=== PATIENT | female | born 1985 | race Caucasian/White ===

== ENCOUNTER 2019-02-05 20:08 | Inpatient (IN) | payer BC ==
[2019-02-05] MEDS ORDERED: Lactated Ringers 1,000 ML IV ONE (20:29)
[2019-02-05] MEDS ORDERED: fentaNYL 100 MCG/2 ML SDV IVPUSH PRN (20:29)
[2019-02-05] MEDS ORDERED: Oxytocin 10 Units/1 ML SDV ONE (21:11)
[2019-02-05] MEDS ORDERED: Oxytocin 10 Units/1 ML SDV IM ONE (21:11)
[2019-02-05] MEDS ORDERED: Sodium Chloride 0.9% 10 ML Syringe FLUSH PRN (21:46)
[2019-02-05] MEDS ORDERED: Lanolin 100% Cream 40 GM Tube TOP PRN (21:50)
[2019-02-05] MEDS ORDERED: Hydrocortisone 2.5% Crm 30 GM Tube TOP ONE (21:50)
[2019-02-05] MEDS ORDERED: Lanolin 100% Cream 40 GM Tube TOP ONE (21:50)
[2019-02-05] MEDS ORDERED: Witch Hazel Medicated Pads 100/Jar TOP ONE (21:50)
[2019-02-05] MEDS ORDERED: Benzocaine 20% Top Spray 56 GM Bottle TOP ONE (21:50)
[2019-02-05] MEDS ORDERED: Witch Hazel Medicated Pads 100/Jar TOP PRN (21:50)
[2019-02-05] MEDS ORDERED: Acetaminophen 325 MG Tab, 50 Tab Bulk Bottle PO PRN (21:57)
[2019-02-05] MEDS ORDERED: Ibuprofen 200 MG Tab, 24 Tab Bulk Bottle PO PRN (21:57)
--- NOTE | 2019-02-05 22:06 | PCM.LDHP ---
L&D History of Present Illness - General Date of Service: 02/05/19 (active labor) Admit Problem/Dx: Patient Status Order with Admit Dx/Problem 02/05/19 21:46 Patient Status [ADT] Routine 02/05/19 21:50 Patient Status [ADT] Routine Admission Diagnosis/Problem Admission Diagnosis/Problem Source of Information: Patient History Limitations: Reports: No Limitations - History of Present Illness Introduction:: This 33 year old presented in active labor at 2014. She is 40 5/7 weeks and has joyce adequate care. Contractions started at 0230 and were on and off most of the day. This evening the contractions became stronger and felt the need to come in. On arrival CE was 3-4/80/-1 per the RN. No leaking of fluid , requesting something for pain. Lab GBS neg HIV neg Rubella Immune ABO A pos Timing/Duration: Reports: minutes: (1-2) Location, : Reports: Abdomen, Lower back, Other (hips) Quality: Reports: Ache, Pressure Severity: Severe Pain Score: 5 Improves with: Reports: Movement Worsens with: Reports: None - Related Data Allergies/Adverse Reactions: Allergies Allergy/AdvReac Type Severity Reaction Status Date / Time amoxicillin [Amoxicillin] Allergy Hives Verified 01/09/15 09:24 erythromycin base AdvReac Nausea and Verified 01/09/15 09:24 [Erythromycin Base] Vomiting Home Medications: Home Meds Levothyroxine Sodium [Synthroid] 75 mcg PO DAILY 01/21/13 [History] Omeprazole 40 mg PO DAILY 10/03/14 [History] Vit 90/Iron Fum/Folic [ Formula] 1 tab PO DAILY 10/03/14 [ History] Albuterol Sulfate [Albuterol Sulfate HFA] 2 puff IH Q4H PRN 01/07/15 [History] Past Medical History Other HEENT History: glasses Other Cardiovascular History: heart murmur as child Other Gastrointestinal History: dilated common bile duct takes omeprazole : 7 Para: 4 LMP (Approximate): (PATTI 02/02/19) Other Musculoskeletal History: sciatica pain with pregnancies Other Endocrine/Metabolic History: hypothyroidism H&P Review of Systems - Review of Systems: Review Of Systems: See Below General: Reports: No Symptoms HEENT: Reports: No Symptoms Pulmonary: Reports: No Symptoms Cardiovascular: Reports: No Symptoms Gastrointestinal: Reports: No Symptoms Genitourinary: Reports: No Symptoms Musculoskeletal: Reports: No Symptoms Skin: Reports: No Symptoms Psychiatric: Reports: No Symptoms Neurological: Reports: No Symptoms Hematologic/Lymphatic: Reports: No Symptoms Immunologic: Reports: No Symptoms L&D Exam - Exam Exam: See Below - OB Specific Contraction Intensity: Strong Movement: Active Heart Tones: Present Heart Tones per Min: 140 Heart Rate (FHR) Variability: Moderate (6-25 bmp) Presentation: Vertex Estimated Weight: 7-8 pounds - John Score John Score Cervix Position: Anterior John Score Consistency: Soft John Score Effacement: >80% John Score Dilation: 3-4 cm John Score Infant's Station: -1 ,0 John Score Total: 11 - Exam General: Alert, Oriented HEENT: PERRLA, Conjunctiva Clear, Mucosa Moist & [place], Pupils Equal, Pupils Reactive Neck: Supple Lungs: Clear to Auscultation, Normal Respiratory Effort Cardiovascular: Regular Rate, Regular Rhythm GI/Abdominal Exam: Normal Bowel Sounds, Soft, Non-Tender, Pelvis Stable Rectal Exam: Normal Exam, Hemorrhoids Genitourinary: Cervical dilitation, Enlarged uterus Back Exam: Normal Inspection, Full Range of Motion Extremities: Normal Inspection, Normal Range of Motion, No Pedal Edema, Normal Capillary Refill Skin: Warm, Dry, Intact Neurological: Cranial Nerves Intact, Reflexes Equal Bilateral Psychiatric: Alert, Normal Affect, Normal Mood - Patient Data Lab Results Last 24 hrs: Laboratory Results - last 24 hr 02/05/19 Range/Units 20:14 Urine Color Yellow (YELLOW) Urine Appearance Clear (CLEAR) Urine pH 7.0 (5.0-8.0) Ur Specific [place] 1.015 (1.008-1.030) Urine Protein Negative (NEGATIVE) mg/dL Urine Glucose (UA) Negative (NEGATIVE) mg/dL Urine Ketones Negative (NEGATIVE) mg/dL Urine Occult Blood Negative (NEGATIVE) Urine Nitrite Negative (NEGATIVE) Urine Bilirubin Negative (NEGATIVE) Urine Urobilinogen 0.2 (0.2-1.0) EU/dL Ur Leukocyte Esterase Negative (NEGATIVE) Urine RBC 0-5 (0-5) Urine WBC 0-5 (0-5) Ur Epithelial Cells Moderate Amorphous Sediment Few Urine Bacteria Few Urine Mucus Few - Problem List (1) Active labor at term SNOMED Code(s): 79735860 ICD Code: [id number] - Status: Acute Current Visit: Yes (2) Intrauterine SNOMED Code(s): 81342826 ICD Code: Z33.1 - STATE, INCIDENTAL Status: Acute Current Visit : No (3) Post-dates SNOMED Code(s): 51812448 ICD Code: O48.0 - POST-TERM Status: Acute Current Visit: No Problem List Initiated/Reviewed/Updated: Yes Orders Last 24hrs: Active Orders 24 hr Category Date Time Status Patient Status [ADT] Routine ADT 02/05/19 21:50 Active Antiembolic Devices [RC] .Routine Care 02/05/19 21:49 Active Communication Order [RC] ASDIRECTED Care 02/05/19 21:46 Active Heart Tones [RC] PER UNIT ROUTINE Care 02/05/19 21:46 Active Notify Provider Vital Signs [RC] PRN Care 02/05/19 20:15 Active Notify Provider [RC] PRN Care 02/05/19 21:46 Active OB Check [OM.PC] Click to Edit Care 02/05/19 20:14 Ordered VTE/DVT Education [RC] Click to Edit Care 02/05/19 21:49 Active Vital Signs [RC] PER UNIT ROUTINE Care 02/05/19 21:46 Active Vital Signs [RC] PFP Care 02/05/19 21:50 Active Regular Diet [DIET] Diet 02/06/19 Breakfast Active CBC WITH AUTO DIFF [HEME] AM Lab 02/06/19 05:11 Ordered Acetaminophen [Tylenol Bulk Bottle] Med 02/05/19 21:57 Ordered See Dose Instructions PO Q4H PRN Benzocaine [Kazd-N-Rpaikkh 20% [place]] Med 02/05/19 21:50 Once See Dose Instructions TOP ONETIME ONE Hydrocortisone [Proctozone-HC 2.5% Crm] Med 02/05/19 21:50 Once 1 gm TOP ONETIME ONE Ibuprofen [Motrin Bulk Bottle] Med 02/05/19 21:57 Ordered 600 mg PO Q6H PRN Lanolin [Lansinoh HPA] Med 02/05/19 21:50 Once 1 gm TOP ONETIME ONE Lanolin [Lansinoh HPA] Med 02/05/19 21:50 Ordered 40 gm TOP ASDIRECTED PRN Sodium Chloride 0.9% [Saline Flush] Med 02/05/19 21:46 Active 10 ml FLUSH ASDIRECTED PRN Witch Sally [Tucks] Med 02/05/19 21:50 Ordered 1 pad TOP ASDIRECTED PRN Witch Sally [Tucks] Med 02/05/19 21:50 Once 1 pad TOP ONETIME ONE fentaNYL [Sublimaze] Med 02/05/19 20:29 Active 100 mcg IVPUSH Q1H PRN Assess Lochia [WOMSER] Per Unit Routine Oth 02/05/19 21:50 Ordered Assess Uterine Involution [WOMSER] Per Unit Routine Oth 02/05/19 21:50 Ordered DVT/VTE Prophylaxis Reflex [OM.PC] Routine Oth 02/05/19 21:46 Ordered Ice Therapy [OM.PC] Per Unit Routine Oth 02/05/19 21:51 Ordered Perineal Care [OM.PC] Per Unit Routine Oth 02/05/19 21:51 Ordered Peripheral IV Discontinue [OM.PC] Routine Oth 02/05/19 21:51 Ordered Saline Lock Insert [OM.PC] Routine Oth 02/05/19 21:46 Ordered Resuscitation Status Routine Resus Stat 02/05/19 21:46 Ordered Medication Orders Acetaminophen (Tylenol Bulk Bottle) 0 mg PO Q4H PRN PRN Reason: Pain Benzocaine (Wpdt-F-Qkstmyn 20% [place]) 0 gm TOP ONETIME ONE Stop: 02/05/19 21:51 Emollient Ointment (Lansinoh Hpa) 1 gm TOP ONETIME ONE Stop: 02/05/19 21:51 Emollient Ointment (Lansinoh Hpa) 40 gm TOP ASDIRECTED PRN PRN Reason: Other Fentanyl (Sublimaze) 100 mcg IVPUSH Q1H PRN PRN Reason: Pain Last Admin: 02/05/19 21:18 Dose: 100 mcg Hydrocortisone (Proctozone-Hc 2.5% Crm) 1 gm TOP ONETIME ONE Stop: 02/05/19 21:51 Ibuprofen (Motrin Bulk Bottle) 600 mg PO Q6H PRN PRN Reason: Pain Sodium Chloride (Saline Flush) 10 ml FLUSH ASDIRECTED PRN PRN Reason: Keep Vein Open Witch Sally (Tucks) 1 pad TOP ONETIME ONE Stop: 02/05/19 21:51 Sintia Zavala (Kai) 1 pad TOP ASDIRECTED PRN PRN Reason: Other Assessment/Plan Comment:: active labor 33 yr old 40 5 Admit for labor and delivery Pain medication per patient request Anticipate a vaginal delivery this evening
--- NOTE | 2019-02-05 22:21 | PCM.DEL ---
L & D Note - General Info Date of Service: 02/05/19 (Childbirth) Mother's Due Date: 02/02/19 - Delivery Note Labor: Spontaneous Delivery Outcome: Livebirth Infant Delivery Method: Spontaneous Vaginal Delivery-Single Delivery Mode: Spontaneous Presentation: Right Occiput Anterior ([place]) Nuchal Cord: None Anesthesia Type: None Amniotic Fluid Description: Clear Episiotomy Type: None Laceration: None Placenta: Intact, Spontaneous, Expressed Cord: 3 Vessels Estimated Blood Loss: 300 Resuscitation Needed: No [place]: Stimulated, Warmed, [place] Used Provider: Maki Mcdonald Score 1 min: 8 Score 5 min: 9 Second Stage Interventions: Reports: Second Nurse Reviewed Heart Tones, Pushing Effectively, Pushing, McRobert's Position Delivery Comments (Free Text/Narrative):: This 33 year old G7 now P5 who is 40 5/7 weeks gestation delivered at 2104 in [place] a viable female over an intact perineum. Mother progressed quickly from 3 cm to complete. SROM at 2047 and complete at 2099. Clear fluid no nuchal cord, three vessel cord. The was placed on her mother's chest where she was dried and stimulated. She cried spontaneously. Delayed cord clamping and pitocin after the delivery for management of the third stage. Baby was to breast within 15 minutes of delivery. The placenta was expressed spontaneously intact. No lacerations of the cervix, vagina, rectum or perineum were found. EBL 300 cc Mother and baby to post in stable condition weight 7-14 first stage second stage third stage - General Info Date of Service: 02/05/19 Admission Dx/Problem (Free Text): Patient Status Order with Admit Dx/Problem 02/05/19 21:46 Patient Status [ADT] Routine 02/05/19 21:50 Patient Status [ADT] Routine Admission Diagnosis/Problem Admission Diagnosis/Problem Functional Status: Reports: Pain Controlled - Review of Systems General: Reports: No Symptoms HEENT: Reports: No Symptoms Pulmonary: Reports: No Symptoms Cardiovascular: Reports: No Symptoms Gastrointestinal: Reports: No Symptoms Genitourinary: Reports: No Symptoms Musculoskeletal: Reports: No Symptoms Skin: Reports: No Symptoms Neurological: Reports: No Symptoms Psychiatric: Reports: No Symptoms - Patient Data Lab Results Last 24 Hours: Laboratory Results - last 24 hr 02/05/19 Range/Units 20:14 Urine Color Yellow (YELLOW) Urine Appearance Clear (CLEAR) Urine pH 7.0 (5.0-8.0) Ur Specific [place] 1.015 (1.008-1.030) Urine Protein Negative (NEGATIVE) mg/dL Urine Glucose (UA) Negative (NEGATIVE) mg/dL Urine Ketones Negative (NEGATIVE) mg/dL Urine Occult Blood Negative (NEGATIVE) Urine Nitrite Negative (NEGATIVE) Urine Bilirubin Negative (NEGATIVE) Urine Urobilinogen 0.2 (0.2-1.0) EU/dL Ur Leukocyte Esterase Negative (NEGATIVE) Urine RBC 0-5 (0-5) Urine WBC 0-5 (0-5) Ur Epithelial Cells Moderate Amorphous Sediment Few Urine Bacteria Few Urine Mucus Few Med Orders - Current: Current Medications Acetaminophen (Tylenol Bulk Bottle) 0 mg PO Q4H PRN PRN Reason: Pain Emollient Ointment (Lansinoh Hpa) 0 gm TOP ASDIRECTED PRN PRN Reason: Other Fentanyl (Sublimaze) 100 mcg IVPUSH Q1H PRN PRN Reason: Pain Last Admin: 02/05/19 21:18 Dose: 100 mcg Ibuprofen (Motrin Bulk Bottle) 600 mg PO Q6H PRN PRN Reason: Pain Sodium Chloride (Saline Flush) 10 ml FLUSH ASDIRECTED PRN PRN Reason: Keep Vein Open Sintia Zavala (Kai) 1 pad TOP ASDIRECTED PRN PRN Reason: Other Discontinued Medications Benzocaine (Isyl-S-Lspmsla 20% [place]) 0 gm TOP ONETIME ONE Stop: 02/05/19 21:51 Emollient Ointment (Lansinoh Hpa) 1 gm TOP ONETIME ONE Stop: 02/05/19 21:51 Hydrocortisone (Proctozone-Hc 2.5% Crm) 0 gm TOP ONETIME ONE Stop: 02/05/19 21:51 Lactated Ringer's (Ringers, Lactated) 1,000 mls @ 999 mls/hr IV BOLUS ONE Stop: 02/05/19 21:29 Oxytocin (Pitocin) Confirm Administered Dose 10 unit .ROUTE .STK-MED ONE Stop: 02/05/19 21:12 Witch Sally ([place]) 1 pad TOP ONETIME ONE Stop: 02/05/19 21:51 - Exam General: Alert, Oriented HEENT: Pupils Equal Neck: Supple Lungs: Clear to Auscultation, Normal Respiratory Effort Cardiovascular: Regular Rate, Regular Rhythm GI/Abdominal Exam: Soft, Non-Tender (Female) Exam: Cervical Dilatation, Enlarged Uterus, Vaginal Bleeding Back Exam: Normal Inspection Extremities: Normal Range of Motion, No Pedal Edema, Normal Capillary Refill Skin: Warm, Dry, Intact Neurological: No New Focal Deficit Psy/Mental Status: Alert, Normal Affect, Normal Mood - Problem List & Annotations (1) Active labor at term SNOMED Code(s): 73708469 Code(s): LYA8341 - Status: Acute Current Visit: Yes (2) Intrauterine SNOMED Code(s): 20939925 Code(s): Z33.1 - STATE, INCIDENTAL Status: Acute Current Visit: No (3) Post-dates SNOMED Code(s): 83756917 Code(s): O48.0 - POST-TERM Status: Acute Current Visit: No (4) () SNOMED Code(s): 554809736 Code(s): Z78.9 - OTHER SPECIFIED HEALTH STATUS Status: Acute Current Visit: Yes (5) Delivery normal SNOMED Code(s): 214344689 Code(s): O80 - ENCOUNTER FOR FULL-TERM UNCOMPLICATED DELIVERY; Z37.0 - SINGLE LIVE Status: Acute Current Visit: Yes - Problem List Review Problem List Initiated/Reviewed/Updated: Yes - My Orders Last 24 Hours: My Active Orders 02/05/19 20:14 OB Check [OM.PC] Click to Edit 02/05/19 20:15 Notify Provider Vital Signs [RC] PRN 02/05/19 20:29 fentaNYL [Sublimaze] 100 mcg IVPUSH Q1H PRN 02/05/19 21:46 Communication Order [RC] ASDIRECTED Heart Tones [RC] PER UNIT ROUTINE Notify Provider [RC] PRN Vital Signs [RC] PER UNIT ROUTINE Sodium Chloride 0.9% [Saline Flush] 10 ml FLUSH ASDIRECTED PRN DVT/VTE Prophylaxis Reflex [OM.PC] Routine Saline Lock Insert [OM.PC] Routine Resuscitation Status Routine 02/05/19 21:49 Antiembolic Devices [RC] .Routine VTE/DVT Education [RC] Click to Edit 02/05/19 21:50 Patient Status [ADT] Routine Vital Signs [RC] PFP Lanolin [Lansinoh HPA] 40 gm TOP ASDIRECTED PRN Sintia Zavala [Tucks] 1 pad TOP ASDIRECTED PRN Assess Lochia [WOMSER] Per Unit Routine Assess Uterine Involution [WOMSER] Per Unit Routine 02/05/19 21:51 Ice Therapy [OM.PC] Per Unit Routine Perineal Care [OM.PC] Per Unit Routine Peripheral IV Discontinue [OM.PC] Routine 02/05/19 21:57 Acetaminophen [Tylenol Bulk Bottle] See Dose Instructions PO Q4H PRN Ibuprofen [Motrin Bulk Bottle] 600 mg PO Q6H PRN 02/06/19 05:11 CBC WITH AUTO DIFF [HEME] AM 02/06/19 Breakfast Regular Diet [DIET] - Assessment Assessment:: 33 year old G7 now P5 without complications infant - Plan Plan:: active labor 33 yr old 40 5/7 Admit for labor and delivery Pain medication per patient request Anticipate a vaginal delivery this evening 02/05/19 routine cares CBC in am support 24-48 hour stay
[2019-02-05] MEDS ORDERED: traMADol 50 MG Tab PO ONE (22:33)
--- NOTE | 2019-02-06 08:10 | PCM.PNPP ---
- General Info Date of Service: 02/06/19 Admission Dx/Problem (Free Text): Patient Status Order with Admit Dx/Problem 02/05/19 21:46 Patient Status [ADT] Routine 02/05/19 21:50 Patient Status [ADT] Routine Admission Diagnosis/Problem Admission Diagnosis/Problem Functional Status: Reports: Pain Controlled - Review of Systems General: Reports: No Symptoms HEENT: Reports: No Symptoms Pulmonary: Reports: No Symptoms Cardiovascular: Reports: No Symptoms Gastrointestinal: Reports: No Symptoms Genitourinary: Reports: No Symptoms Musculoskeletal: Reports: No Symptoms Skin: Reports: No Symptoms Neurological: Reports: No Symptoms Psychiatric: Reports: No Symptoms - General Info Date of Service: 02/06/19 - Patient Data Vital Signs - Most Recent: Last Vital Signs Temp 97.3 F 02/06/19 07:17 Pulse 81 02/06/19 07:17 Resp 18 02/06/19 07:17 BP 117/87 02/06/19 07:17 Pulse Ox 98 02/06/19 07:17 Weight - Most Recent: 163 lb I&O - Last 24 Hours: Intake & Output 02/05/19 02/06/19 02/06/19 22:59 06:59 14:59 Intake Total 850 Balance 850 Lab Results - Last 24 Hours: Laboratory Results - last 24 hr 02/05/19 02/06/19 Range/Units 20:14 05:00 WBC 13.5 H (4.5-11.0) K/uL RBC 3.42 (3.30-5.50) M/uL Hgb 10.6 L (12.0-15.0) g/dL Hct 31.3 L (36.0-48.0) % MCV 92 (80-98) fL MCH 31 (27-31) pg MCHC 34 (32-36) % Plt Count 278 (150-400) K/uL Neut % (Auto) 81 H (36-66) % Lymph % (Auto) 12 L (24-44) % [place] % (Auto) 7 H (2-6) % Eos % (Auto) 0 L (2-4) % Baso % (Auto) 0 (0-1) % Urine Color Yellow (YELLOW) Urine Appearance Clear (CLEAR) Urine pH 7.0 (5.0-8.0) Ur Specific [place] 1.015 (1.008-1.030) Urine Protein Negative (NEGATIVE) mg/dL Urine Glucose (UA) Negative (NEGATIVE) mg/dL Urine Ketones Negative (NEGATIVE) mg/dL Urine Occult Blood Negative (NEGATIVE) Urine Nitrite Negative (NEGATIVE) Urine Bilirubin Negative (NEGATIVE) Urine Urobilinogen 0.2 (0.2-1.0) EU/dL Ur Leukocyte Esterase Negative (NEGATIVE) Urine RBC 0-5 (0-5) Urine WBC 0-5 (0-5) Ur Epithelial Cells Moderate Amorphous Sediment Few Urine Bacteria Few Urine Mucus Few Med Orders - Current: Current Medications Acetaminophen (Tylenol Bulk Bottle) 0 mg PO Q4H PRN PRN Reason: Pain Emollient Ointment (Lansinoh Hpa) 0 gm TOP ASDIRECTED PRN PRN Reason: Other Ibuprofen (Motrin Bulk Bottle) 600 mg PO Q6H PRN PRN Reason: Pain Last Admin: 02/05/19 22:16 Dose: 600 mg Sodium Chloride (Saline Flush) 10 ml FLUSH ASDIRECTED PRN PRN Reason: Keep Vein Open Sintia Zavala (Kai) 1 pad TOP ASDIRECTED PRN PRN Reason: Other Discontinued Medications Benzocaine (Lqri-X-Zsdethr 20% [place]) 0 gm TOP ONETIME ONE Stop: 02/05/19 21:51 Last Admin: 02/05/19 23:43 Dose: Not Given Emollient Ointment (Lansinoh Hpa) 1 gm TOP ONETIME ONE Stop: 02/05/19 21:51 Last Admin: 02/05/19 23:42 Dose: 1 applic Fentanyl (Sublimaze) 100 mcg IVPUSH Q1H PRN PRN Reason: Pain Last Admin: 02/05/19 21:18 Dose: 100 mcg Hydrocortisone (Proctozone-Hc 2.5% Crm) 0 gm TOP ONETIME ONE Stop: 02/05/19 21:51 Last Admin: 02/06/19 02:31 Dose: Not Given Lactated Ringer's (Ringers, Lactated) 1,000 mls @ 999 mls/hr IV BOLUS ONE Stop: 02/05/19 21:29 Last Admin: 02/05/19 20:40 Dose: 999 mls/hr Oxytocin (Pitocin) Confirm Administered Dose 10 unit .ROUTE .STK-MED ONE Stop: 02/05/19 21:12 Last Admin: 02/05/19 21:12 Dose: 10 unit Tramadol HCl (Ultram) 50 mg PO ONETIME ONE Stop: 02/05/19 22:34 Last Admin: 02/05/19 22:58 Dose: 50 mg Witch Sally (Tucks) 1 pad TOP ONETIME ONE Stop: 02/05/19 21:51 Last Admin: 02/05/19 23:43 Dose: 1 pad - Interaction Disposition, : [place] in Room with Family Infant Interaction: Holding Infant Feeding: Breastfed Infant; Nursed Well Support Person: , Mother - Recovery Exam Fundal Tone: Firm Fundal Level: At Umbilicus Fundal Placement: Midline Lochia Amount: Moderate Lochia Color: [place]/Red Perineum Description: Intact, Minimal Bruising/Swelling Episiotomy/Laceration: None Urinary Elimination: Voided - Exam General: Alert, Oriented HEENT: Pupils Equal, Pupils Reactive Neck: Supple Lungs: Clear to Auscultation, Normal Respiratory Effort Cardiovascular: Regular Rate, Regular Rhythm GI/Abdominal Exam: Normal Bowel Sounds Extremities: Normal Inspection, Normal Range of Motion, No Pedal Edema Skin: Warm, Dry, Intact Wound/Incisions: Healing Well Neurological: No New Focal Deficit Psy/Mental Status: Alert, Normal Affect, Normal Mood - Problem List & Annotations (1) Active labor at term SNOMED Code(s): 78161264 Code(s): TTF0967 - Status: Acute Current Visit: Yes (2) Intrauterine SNOMED Code(s): 60080390 Code(s): Z33.1 - STATE, INCIDENTAL Status: Acute Current Visit: No (3) Post-dates SNOMED Code(s): 76831231 Code(s): O48.0 - POST-TERM Status: Acute Current Visit: No (4) () SNOMED Code(s): 188446631 Code(s): Z78.9 - OTHER SPECIFIED HEALTH STATUS Status: Acute Current Visit: Yes (5) Delivery normal SNOMED Code(s): 307225870 Code(s): O80 - ENCOUNTER FOR FULL-TERM UNCOMPLICATED DELIVERY; Z37.0 - SINGLE LIVE Status: Acute Current Visit: Yes - Problem List Review Problem List Initiated/Reviewed/Updated: Yes - My Orders Last 24 Hours: My Active Orders 02/05/19 20:14 OB Check [OM.PC] Click to Edit 02/05/19 20:15 Notify Provider Vital Signs [RC] PRN 02/05/19 21:46 Vital Signs [RC] PER UNIT ROUTINE Sodium Chloride 0.9% [Saline Flush] 10 ml FLUSH ASDIRECTED PRN DVT/VTE Prophylaxis Reflex [OM.PC] Routine Saline Lock Insert [OM.PC] Routine Resuscitation Status Routine 02/05/19 21:49 Antiembolic Devices [RC] .Routine VTE/DVT Education [RC] Click to Edit 02/05/19 21:50 Patient Status [ADT] Routine Vital Signs [RC] PFP Lanolin [Lansinoh HPA] 0 gm TOP ASDIRECTED PRN Witch Sally [Tucks] 1 pad TOP ASDIRECTED PRN Assess Lochia [WOMSER] Per Unit Routine Assess Uterine Involution [WOMSER] Per Unit Routine 02/05/19 21:51 Ice Therapy [OM.PC] Per Unit Routine Perineal Care [OM.PC] Per Unit Routine Peripheral IV Discontinue [OM.PC] Routine 02/05/19 21:57 Acetaminophen [Tylenol Bulk Bottle] See Dose Instructions PO Q4H PRN Ibuprofen [Motrin Bulk Bottle] 600 mg PO Q6H PRN 02/06/19 Breakfast Regular Diet [DIET] - Assessment Assessment:: 33 year old G7 now P5 without complications 02/06/19 doing well, very happy excellent breast feeding voiding and up and about HGB 10.6 - Plan Plan:: active labor 33 yr old 40 5/7 Admit for labor and delivery Pain medication per patient request Anticipate a vaginal delivery this evening 02/05/19 routine cares CBC in am support 24-48 hour stay 02/06/19 Continue routine cares Home tomorrow
[2019-02-07 07:50] VITALS: BP 138/89; PULSE 68
--- NOTE | 2019-02-07 07:52 | PCM.PNPP ---
- General Info Date of Service: 02/07/19 (PPD 2 D/C) Admission Dx/Problem (Free Text): Patient Status Order with Admit Dx/Problem 02/05/19 21:46 Patient Status [ADT] Routine 02/05/19 21:50 Patient Status [ADT] Routine Admission Diagnosis/Problem Admission Diagnosis/Problem Functional Status: Reports: Pain Controlled - Review of Systems General: Reports: No Symptoms HEENT: Reports: No Symptoms Pulmonary: Reports: No Symptoms Cardiovascular: Reports: No Symptoms Gastrointestinal: Reports: No Symptoms Genitourinary: Reports: No Symptoms Musculoskeletal: Reports: No Symptoms Skin: Reports: No Symptoms Neurological: Reports: No Symptoms Psychiatric: Reports: No Symptoms - General Info Date of Service: 02/07/19 - Patient Data Vital Signs - Most Recent: Last Vital Signs Temp 97.2 F 02/06/19 23:30 Pulse 58 L 02/06/19 23:30 Resp 16 02/06/19 23:30 BP 124/75 02/06/19 23:30 Pulse Ox 99 02/06/19 23:30 Weight - Most Recent: 163 lb 0.016 oz Med Orders - Current: Current Medications Acetaminophen (Tylenol Bulk Bottle) 0 mg PO Q4H PRN PRN Reason: Pain Emollient Ointment (Lansinoh Hpa) 0 gm TOP ASDIRECTED PRN PRN Reason: Other Ibuprofen (Motrin Bulk Bottle) 600 mg PO Q6H PRN PRN Reason: Pain Last Admin: 02/05/19 22:16 Dose: 600 mg Sodium Chloride (Saline Flush) 10 ml FLUSH ASDIRECTED PRN PRN Reason: Keep Vein Open Witch Sally (Tucks) 1 pad TOP ASDIRECTED PRN PRN Reason: Other Discontinued Medications Benzocaine (Agqy-S-Aipnkek 20% [place]) 0 gm TOP ONETIME ONE Stop: 02/05/19 21:51 Last Admin: 02/05/19 23:43 Dose: Not Given Emollient Ointment (Lansinoh Hpa) 1 gm TOP ONETIME ONE Stop: 02/05/19 21:51 Last Admin: 02/05/19 23:42 Dose: 1 applic Fentanyl (Sublimaze) 100 mcg IVPUSH Q1H PRN PRN Reason: Pain Last Admin: 02/05/19 21:18 Dose: 100 mcg Hydrocortisone (Proctozone-Hc 2.5% Crm) 0 gm TOP ONETIME ONE Stop: 02/05/19 21:51 Last Admin: 02/06/19 02:31 Dose: Not Given Lactated Ringer's (Ringers, Lactated) 1,000 mls @ 999 mls/hr IV BOLUS ONE Stop: 02/05/19 21:29 Last Admin: 02/05/19 20:40 Dose: 999 mls/hr Oxytocin (Pitocin) Confirm Administered Dose 10 unit .ROUTE .STK-MED ONE Stop: 02/05/19 21:12 Last Admin: 02/05/19 21:12 Dose: 10 unit Oxytocin (Pitocin) 10 unit IM ONETIME ONE Stop: 02/05/19 21:12 Last Admin: 02/06/19 08:48 Dose: Not Given Tramadol HCl (Ultram) 50 mg PO ONETIME ONE Stop: 02/05/19 22:34 Last Admin: 02/05/19 22:58 Dose: 50 mg Witch Sally (Tucks) 1 pad TOP ONETIME ONE Stop: 02/05/19 21:51 Last Admin: 02/05/19 23:43 Dose: 1 pad - Infant Interaction Disposition, : [place] in Room with Family Infant Interaction: Holding Infant Feeding: Breastfed Infant; Nursed Well Support Person: , Mother - Recovery Exam Fundal Tone: Boggy Fundal Level: At Umbilicus Fundal Placement: Midline Lochia Amount: Small, Clots/Tissue Present Lochia Color: Rubra/Red Perineum Description: Intact, Minimal Bruising/Swelling Episiotomy/Laceration: None Bladder Status: Voiding Urinary Elimination: Voided - Exam General: Alert, Oriented HEENT: Pupils Equal, Pupils Reactive, EOMI Neck: Supple Lungs: Clear to Auscultation, Normal Respiratory Effort Cardiovascular: Regular Rate, Regular Rhythm GI/Abdominal Exam: Soft, Non-Tender Extremities: Normal Range of Motion, Normal Capillary Refill, Pedal Edema Skin: Warm, Dry, Intact Wound/Incisions: Healing Well Neurological: No New Focal Deficit Psy/Mental Status: Alert, Normal Affect, Normal Mood - Problem List & Annotations (1) Active labor at term SNOMED Code(s): 67445809 Code(s): BID7193 - Status: Acute Current Visit: Yes (2) Intrauterine SNOMED Code(s): 02260570 Code(s): Z33.1 - STATE, INCIDENTAL Status: Acute Current Visit: No (3) Post-dates SNOMED Code(s): 06525550 Code(s): O48.0 - POST-TERM Status: Acute Current Visit: No (4) (infant) SNOMED Code(s): 089495432 Code(s): Z78.9 - OTHER SPECIFIED HEALTH STATUS Status: Acute Current Visit: Yes (5) Delivery normal SNOMED Code(s): 307164079 Code(s): O80 - ENCOUNTER FOR FULL-TERM UNCOMPLICATED DELIVERY; Z37.0 - SINGLE LIVE Status: Acute Current Visit: Yes - Problem List Review Problem List Initiated/Reviewed/Updated: Yes - My Orders Last 24 Hours: My Active Orders 02/06/19 Breakfast Regular Diet [DIET] - Assessment Assessment:: 33 year old G7 now P5 without complications infant 02/06/19 doing well, very happy excellent breast feeding voiding and up and about HGB 10.6 02/07/19 Happy and wants to go home , perfect crampy and passed a clot this morning, bleeding moderate voiding fine - Plan Plan:: active labor 33 yr old 40 5/7 Admit for labor and delivery Pain medication per patient request Anticipate a vaginal delivery this evening 02/05/19 routine cares CBC in am support 24-48 hour stay 02/06/19 Continue routine cares Home tomorrow 02/07/19 Home today see me 6 weeks for a post visit
== END 2019-02-07 09:17 | disposition home or self-care (01) | DRG 560 ==
LOC: JP.OBCHECK 20:08 → JP.OB 20:48 → OBSVTOIN 21:05 → JP.MS 23:38
PROVIDERS: ADMIT Nurse Practitioner Family; ATTEND Nurse Practitioner Family
PROC: 10E0XZZ Delivery of Products of Conception, External Approach (ICD-10-PCS; principal; 2019-02-05)
DX: O48.0 Post-term pregnancy (principal); O26.62 Liver and biliary tract disorders in childbirth; O99.284 Endocrine, nutritional and metabolic diseases complicating childbirth; E03.9 Hypothyroidism, unspecified; K83.8 Other specified diseases of biliary tract; O99.52 Diseases of the respiratory system complicating childbirth; J45.909 Unspecified asthma, uncomplicated; Z88.1 Allergy status to other antibiotic agents; Z79.899 Other long term (current) drug therapy; Z3A.40 40 weeks gestation of pregnancy; Z37.0 Single live birth
CPT/HCPCS: 36415; 59409; 81001; 85025; 99211; A9270-GY; J2590; J3010; J7120

== ENCOUNTER 2022-04-22 06:08 | Emergency (ER) | payer BC ==
[2022-04-22 06:18] VITALS: BP 147/82; PULSE 75
[2022-04-22] MEDS ORDERED: fentaNYL 100 MCG/2 ML SDV IVPUSH ONE (06:22)
[2022-04-22] MEDS ORDERED: Ondansetron 4 MG/2 ML SDV IVPUSH ONE (06:22)
[2022-04-22 06:44] LABS: ESTIMATED GFR 84 mL/min (>60)
[2022-04-22] MEDS ORDERED: Sodium Chloride 0.9% 10 ML Syringe FLUSH PRN (08:38)
[2022-04-22] MEDS ORDERED: Iopamidol 612 MG/ML 100 ML Bottle IV PRN (08:38)
[2022-04-22] MEDS ORDERED: Sodium Chloride 0.9% 50 ML IV ONE (08:38)
== END 2022-04-22 10:10 | disposition home or self-care (01) ==
LOC: JP.ED 06:08
DX: N85.2 Hypertrophy of uterus (principal); D18.01 Hemangioma of skin and subcutaneous tissue; J45.909 Unspecified asthma, uncomplicated; E03.9 Hypothyroidism, unspecified; Z88.0 Allergy status to penicillin; Z88.1 Allergy status to other antibiotic agents; Z79.899 Other long term (current) drug therapy
CPT/HCPCS: 36415; 74177; 76705; 80053; 81001; 81025; 83690; 85025; 96374; 96375; 99284; J2405; J3010; J3490; Q9967

== ENCOUNTER 2022-05-06 05:59 | Day surgery (SDC) | payer BC ==
[~2022-05-06 05:59] MED LIST: Indocyanine Green 25 MG SDV INJECT ONE
[2022-05-06] MEDS ORDERED: Scopolamine 1.5 MG Transdermal Patch TOP SCH (06:30)
[2022-05-06] MEDS ORDERED: Acetaminophen 500 MG Tab PO ONE (06:30)
[2022-05-06] MEDS ORDERED: Enoxaparin 30 MG/0.3 ML Syringe SUBCUT ONE (06:30)
[2022-05-06] MEDS ORDERED: Bupivacaine 0.5% 30 ML SDV ONE (06:52)
[2022-05-06] MEDS ORDERED: Indocyanine Green 25 MG SDV INJECT ONE (07:10)
[2022-05-06] MEDS ORDERED: Sodium Chloride 0.9% 1,000 ML IV SCH (07:15)
[2022-05-06] MEDS ORDERED: Dexamethasone 4 MG/ML SDV ONE (07:21)
[2022-05-06] MEDS ORDERED: Ondansetron 4 MG/2 ML SDV ONE (07:21)
[2022-05-06] MEDS ORDERED: Rocuronium 50 MG/5 ML Vial ONE (07:21)
[2022-05-06] MEDS ORDERED: Succinylcholine 200 MG/10 ML MDV ONE (07:21)
[2022-05-06] MEDS ORDERED: Propofol 200 MG/20 ML SDV ONE (07:21)
[2022-05-06] MEDS ORDERED: Glycopyrrolate 0.2 MG/ML 5 ML MDV ONE (07:21)
[2022-05-06] MEDS ORDERED: fentaNYL 250 MCG/5 ML SDV ONE (07:21)
[2022-05-06] MEDS ORDERED: Neostigmine Methylsulfate 1 MG/ML 5 ML Syringe ONE (07:21)
[2022-05-06] MEDS ORDERED: cefTRIAXone 2 GM in Sodium Chloride 0.9% 50 ML IV ONE (07:30)
[2022-05-06] MEDS ORDERED: Bupivacaine 0.5%/EPINEPHrine 1:200,000 50 ML MDV ONE (07:41)
[2022-05-06] MEDS ORDERED: metroNIDAZOLE/Normal Saline 500 MG in Premix Bag 1 BAG IV ONE (08:00)
[2022-05-06] MEDS ORDERED: fentaNYL 100 MCG/2 ML SDV ONE ×2 (08:20→08:58)
[2022-05-06] MEDS ORDERED: cefTRIAXone 1 GM Vial IM ONE (08:30)
[2022-05-06] MEDS ORDERED: Ketorolac 30 MG/ML SDV ONE (08:57)
[2022-05-06] MEDS ORDERED: Lactated Ringers 1,000 ML ONE (09:05)
[2022-05-06] MEDS ORDERED: oxyCODONE 5 MG Tab PO ONE (11:32)
[2022-05-06 13:08] VITALS: BP 106/68; PULSE 82
== END 2022-05-06 13:23 | disposition home or self-care (01) ==
LOC: JP.SDS 05:59
PROVIDERS: ATTEND Student in an Organized Health Care Education/Training Program
DX: K81.1 Chronic cholecystitis (principal); K82.8 Other specified diseases of gallbladder; E03.9 Hypothyroidism, unspecified; J45.909 Unspecified asthma, uncomplicated; E23.0 Hypopituitarism; I87.2 Venous insufficiency (chronic) (peripheral); Z88.0 Allergy status to penicillin; Z79.899 Other long term (current) drug therapy; Z88.1 Allergy status to other antibiotic agents; Z88.5 Allergy status to narcotic agent
CPT/HCPCS: 47562; 81025; A9270; J0330; J0696; J1100; J1650; J1885; J2405; J2704; J2710; J3010; J3490; J7030; J7120